=== PATIENT | male | born 1995 | race Caucasian/White ===

== ENCOUNTER 2022-01-20 10:28 | Emergency (ER) | payer BC ==
[2022-01-20 12:39] LABS: HEMOGLOBIN 15.9 gm/dl (14.0-17.5); RED BLOOD COUNT 5.35 M/UL (4.20-5.50); WHITE BLOOD COUNT 3.1 K/UL (4.5-11.0)
[2022-01-20 13:02] LABS: BUN/CREATININE RATIO 23 (0-10)
== END 2022-01-20 14:20 | disposition home or self-care (01) ==
LOC: ER1 10:28
PROVIDERS: Emergency Medicine
DX: U07.1 COVID-19 (principal); I10 Essential (primary) hypertension
CPT/HCPCS: 71045; 80053; 82550; 82553; 84484; 85025; 99283